=== PATIENT | male | born 1960 | race American Indian/Alaskan Native ===

== ENCOUNTER 2021-07-16 13:15 | Emergency (ER) | payer OTHER ==
[2021-07-16] MEDS ORDERED: ONDANSETRON 4 MG/2 ML INJ IV ONE (13:46)
[2021-07-16] MEDS: levETIRAcetam 1000 MG/NS 0.75% 1,000 MG/100 ML BAG IV ONE ×2 (13:58→14:07)
[2021-07-16] MEDS: SODIUM CHLORIDE 0.9% 1000 ML 1,000 ML IV ONE ×2 (13:59→14:07)
[2021-07-16 14:18] LABS: Basophils # (Auto) 0.1 K/mm3 (0.0-0.1); Basophils % (Auto) 1.5 % (0.0-1.8); Eosinophils % (Auto) 0.9 % (0.0-4.3); Hematocrit 37.2 % (35.5-45.6); Lymphocytes # (Auto) 1.4 K/mm3 (1.2-5.4); Lymphocytes % (Auto) 38.2 % (13.4-35.0); Mean Corpuscular HGB Conc 35 % (32-34); Mean Corpuscular Volume 89 fl (84-94); Monocytes # (Auto) 0.3 K/mm3 (0.0-0.8); Monocytes % (Auto) 6.7 % (0.0-7.3); Platelet Count 312 K/mm3 (140-440); Red Blood Count 4.19 M/mm3 (3.65-5.03)
[2021-07-16 15:07] LABS: Alanine Aminotransferase 120 units/L (7-56); Albumin 3.3 g/dL (3.9-5); BUN/Creatinine Ratio 12; Blood Urea Nitrogen 11 mg/dL (9-20); Calcium 8.3 mg/dL (8.4-10.2); Hemolysis Index 4
--- NOTE | 2021-07-16 16:14 | Emergency Department Report ---
ED Seizure HPI - General Chief Complaint: Seizure Stated Complaint: BLOOD SUGAR LOW Time Seen by Provider: 07/16/21 13:40 Source: patient, EMS Mode of arrival: Stretcher Limitations: Altered Mental Status - History of Present Illness Initial Comments: CC: seizure HPI: THis is a 61 yo male with hx of seizure disorder who presents with vomiting and seizure. Patient denies pain. Patient arrived via EMS. He denies any other complaints. MD Complaint: seizure -: This morning Description of Episode: loss of consciousness, tonic-clonic movement Witnessed:: Yes Seizure History: known seizure disorder Place: home Associated Symptoms: other (vomiting) - Related Data Allergies Allergy/AdvReac Type Severity Reaction Status Date / Time No Known Allergies Allergy Verified 07/16/21 13:32 ED Review of Systems ROS: Stated complaint: BLOOD SUGAR LOW Other details as noted in HPI Comment: All other systems reviewed and negative Constitutional: denies: chills, fever, malaise Cardiovascular: denies: chest pain Gastrointestinal: nausea, vomiting. denies: abdominal pain, diarrhea ED Past Medical Hx - Past Medical History Previous Medical History?: Yes Hx Hypertension: Yes Hx Seizures: Yes - Social History Smoking Status: Unknown if ever smoked Substance Use Type: None ED Physical Exam - General Limitations: No Limitations General appearance: alert, in no apparent distress - Head Head exam: Present: atraumatic, normocephalic - Eye Eye exam: Present: other (estropia). Absent: scleral icterus, conjunctival injection - ENT ENT exam: Present: mucous membranes moist - Neck Neck exam: Present: normal inspection, full ROM - Respiratory Respiratory exam: Present: normal lung sounds bilaterally. Absent: respiratory distress, wheezes, rales, rhonchi - Cardiovascular Cardiovascular Exam: Present: regular rate, normal rhythm, normal heart sounds. Absent: systolic murmur, diastolic murmur, rubs, gallop - GI/Abdominal GI/Abdominal exam: Present: soft, normal bowel sounds. Absent: distended, tenderness, guarding, rebound - Rectal Rectal exam: Present: deferred - Extremities Exam Extremities exam: Present: normal inspection - Neurological Exam Neurological exam: Present: alert, oriented X3 - Psychiatric Psychiatric exam: Present: normal affect, normal mood - Skin Skin exam: Present: warm, dry, intact, normal color. Absent: rash ED Course Vital Signs 07/16/21 07/16/21 07/16/21 13:31 13:41 13:46 Temperature 98.2 F Pulse Rate 61 58 L Respiratory 14 18 Rate Blood Pressure Blood Pressure 76/40 [Right] O2 Sat by Pulse 96 97 96 Oximetry 07/16/21 07/16/21 07/16/21 14:01 14:15 14:31 Temperature Pulse Rate 75 Respiratory 16 17 19 Rate Blood Pressure 88/60 91/58 96/57 Blood Pressure [Right] O2 Sat by Pulse 100 97 100 Oximetry 07/16/21 07/16/21 07/16/21 14:45 15:01 15:15 Temperature Pulse Rate 56 L 54 L 51 L Respiratory 17 12 19 Rate Blood Pressure 98/62 88/64 97/59 Blood Pressure [Right] O2 Sat by Pulse 96 98 97 Oximetry 07/16/21 07/16/21 07/16/21 15:25 15:26 15:27 Temperature Pulse Rate 54 L 53 L 51 L Respiratory 21 16 21 Rate Blood Pressure 89/61 89/61 Blood Pressure 102/66 [Right] O2 Sat by Pulse 99 97 97 Oximetry 07/16/21 07/16/21 07/16/21 15:29 15:31 15:33 Temperature Pulse Rate 49 L 56 L 56 L Respiratory 16 15 19 Rate Blood Pressure 89/61 89/61 102/66 Blood Pressure [Right] O2 Sat by Pulse 99 98 99 Oximetry ED Medical Decision Making - Lab Data Result diagrams: 07/16/21 13:57 07/16/21 13:57 - Medical Decision Making Breakthrough seizure history of seizure disorder patient received IV Keppra load. Observed in emergency department for 3 hours. Discharged home. Critical care attestation.: If time is entered above; I have spent that time in minutes in the direct care of this critically ill patient, excluding procedure time. ED Disposition Clinical Impression: Seizure Disposition: 01 HOME / SELF CARE / HOMELESS Is pt being admited?: No Does the pt Need Aspirin: No Condition: Stable Instructions: Seizure, Adult Referrals: FRAN ROSS MD [Referring] - 3-5 Days
[2021-07-16 16:42] VITALS: BP 97/73
--- NOTE | 2021-07-16 17:54 | Electrocardiograph Report ---
[facility] Test Date: 2021-07-16 Test Time: 14:27:20 Pat Name: LONDON LAGOS Department: Room: Gender: M Gutter Mouth Cutter: AMADO : 1960 Requested By: MORENO MONSIVAIS Order Number: [id number] Reading MD: Carlos Walker Measurements Intervals [place] Rate: 54 P: 63 MD: 173 QRS: 8 QRSD: 86 T: 42 QT: 477 QTc: 452 Interpretive Statements Sinus bradycardia with irregular rate Low voltage, precordial leads Consider old anteroseptal infarct No previous ECG available for comparison Electronically Signed On 07-16-2021 17:54:14 EDT by Carlos Walker
== END 2021-07-16 16:40 | disposition home or self-care (01) ==
LOC: ED 13:15
DX: R56.9 Unspecified convulsions (principal); R11.10 Vomiting, unspecified; I10 Essential (primary) hypertension; Z79.899 Other long term (current) drug therapy
CPT/HCPCS: 36415; 80053; 85025; 93005; 96365; 96375; 99284; J1953; J7030